=== PATIENT | female | born 1995 | race Caucasian/White ===

== ENCOUNTER 2016-07-04 14:11 | Emergency (ER) | payer OTHER | END 2016-07-04 17:23 | disposition home or self-care (01) | LOC: ER 14:11 | DX: R10.9 Unspecified abdominal pain (principal); R30.0 Dysuria; R55 Syncope and collapse; R35.0 Frequency of micturition; R11.2 Nausea with vomiting, unspecified; Z87.442 Personal history of urinary calculi; Z79.899 Other long term (current) drug therapy; Z88.0 Allergy status to penicillin; Z88.1 Allergy status to other antibiotic agents; Z88.6 Allergy status to analgesic agent; Z88.8 Allergy status to other drugs, medicaments and biological substances | CPT/HCPCS: 36415; 96361; 96374; 96375; 96376; J1885 ==